=== PATIENT | female | born 1965 | race Caucasian/White ===

== ENCOUNTER 2022-03-12 10:47 | Emergency (ER) | payer BC ==
[2022-03-12] VITALS (8 sets, daily range): BP systolic 128–180; BP diastolic 67–92
[~2022-03-12] VITALS: Ht 152.4 cm; Wt 108.2 kg
[2022-03-12] MEDS ORDERED: MOTRIN800 MG PO (11:13)
== END 2022-03-12 13:09 | disposition home or self-care (01) | DRG 914 ==
LOC: ED 10:47
DX: S09.90XA Unspecified injury of head, initial encounter (principal); W01.198A Fall on same level from slipping, tripping and stumbling with subsequent striking against other object, initial encounter; S00.31XA Abrasion of nose, initial encounter; S00.81XA Abrasion of other part of head, initial encounter; S00.83XA Contusion of other part of head, initial encounter; I10 Essential (primary) hypertension